=== PATIENT | female | born 1960 | race Caucasian/White ===

== ENCOUNTER → 2021-09-10 | Outpatient (CLI) | payer OTHER | LOC: ORTHO 11:24 | PROVIDERS: ATTEND Orthopaedic Surgery | DX: S72.112A Displaced fracture of greater trochanter of left femur, initial encounter for closed fracture (principal); X58.XXXA Exposure to other specified factors, initial encounter | CPT/HCPCS: 99203 ==

== ENCOUNTER → 2021-09-24 | Outpatient (CLI) | payer OTHER ==
--- NOTE | 2021-09-24 12:08 | Diagnostic Imaging Report ---
Indication: Fracture of the left greater trochanter. Time of Exam: 11:31 AM Correlation is made with an outside CT study of the pelvis performed 09/05/2021. There is a transversely-oriented lucency through the greater trochanter. No displacement is seen. The femoral head and neck are intact. Femoral acetabular alignment is normal. Joint spaces are well-maintained. IMPRESSION: Nondisplaced fracture of the greater trochanter, similar to outside CT. Dictated by: Dictated on workstation # [id number]
== END ==
LOC: ORTHO 11:20
PROVIDERS: ATTEND Orthopaedic Surgery
DX: S72.115A Nondisplaced fracture of greater trochanter of left femur, initial encounter for closed fracture (principal); X58.XXXA Exposure to other specified factors, initial encounter
CPT/HCPCS: 73502; 99213